=== PATIENT | male | born 2005 | race Hispanic/Latino ===

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

== ENCOUNTER 2024-05-24 17:14 | Emergency (ER) | payer OTHER ==
[2024-05-24] MEDS ORDERED: Morphine 4 MG/ML VIAL ONE (17:59)
[2024-05-24] MEDS ORDERED: Ondansetron PF 4 MG/2 ML Vial ONE (17:59)
[2024-05-24 18:04] LABS: #Basophils 0.1 thou/uL (0.0-0.2); #Lymphocytes 2.3 thou/uL (1.20-3.40); #Monocytes 1.2 thou/uL (0.11-0.59); #Neutrophils 13.2 thou/uL (1.40-6.50); %Basophils 0.6 % (0.0-1.0); %Eosinophils 0.2 % (0.0-10.0); %Lymphocytes 13.5 % (21.0-51.0); %Monocytes 7.2 % (0.0-10.0); %Neutrophils 78.6 % (42.0-75.0); Hematocrit 53.4 % (42.0-52.0); Hemoglobin 16.5 g/dL (14.0-18.0); Mean Corpuscular HGB CONC 30.9 g/dL (32.0-36.0); Mean Corpuscular Hemoglobin 28.2 pg (27.0-31.0); Mean Corpuscular Volume 91.4 fl (78.0-98.0); Mean Platelet Volume 5.4 fL (7.4-10.4); Platelet Count 375 10x3/uL (130-400); RBC Distribution Width 12.6 % (11.5-14.5); Red Blood Cell (RBC) Count 5.85 mill/uL (4.70-6.10); White Blood Cell (WBC) Count 16.8 10x3/uL (4.8-10.8)
[2024-05-24 18:08] LABS: PTT 26.6 sec (22.9-36.1); Prothrombin Time 13.4 sec (12.0-14.7)
[2024-05-24 18:18] LABS: ALT (SGPT) 108 U/L (8-55); AST (SGOT) 35 U/L (5-34); Albumin 4.8 g/dL (3.5-5.0); Alkaline Phosphatase 119 U/L (40-110); Anion Gap 17 mmol/L (10-20); BUN (Urea Nitrogen) 6 mg/dL (8.9-20.6); Bilirubin, Total 0.7 mg/dL (0.2-1.2); Calc. Creatinine Clearance 0 mL/min (70-130); Calcium 9.8 mg/dL (7.8-10.44); Carbon Dioxide 23 mmol/L (22-29); Chloride 101 mmol/L (98-107); Estimated GFR 125; Globulin 3.3 g/dL (2.4-3.5); Glucose 112 mg/dL (70-105); Potassium 3.9 mmol/L (3.5-5.1); Protein, Total 8.1 g/dL (6.0-8.3); Sodium 137 mmol/L (136-145)
[2024-05-24 18:19] LABS: Troponin I Less than 0.010 ng/mL (< 0.028)
[2024-05-24] MEDS ORDERED: Sodium Chloride 0.9% 1,000 ML ONE (18:37)
[2024-05-24] MEDS ORDERED: Ketorolac Tromethamine 30 MG (1 mL) VIAL ONE (18:37)
[2024-05-24] MEDS ORDERED: Piperacillin/Tazobactam 3.375 GM VIAL ONE (18:37)
== END 2024-05-24 19:32 | disposition short-term general hospital (02) ==
LOC: MADERS 17:14
DX: K50.90 Crohn's disease, unspecified, without complications (principal)
CPT/HCPCS: 71045; 74177; 80053; 84484; 85025; 85610; 85730; 93005; 96365; 96375; J1885; J2270; J2405; J2543; J7050; Q9967